=== PATIENT | male | born 1930 | race Caucasian/White ===

== ENCOUNTER 2018-01-04 22:04 | Inpatient (IN) ==
[2018-01-05] MEDS ORDERED: Naloxone 0.4 MG/ML INJ IVP PRN (01:01)
[2018-01-05 01:39] LABS: Hematocrit 26.6 % (37.5-50.1); Hemoglobin 8.2 g/dL (12.9-16.9); Immature Granulocytes % 0.3 % (0-4); Lymphocytes # 0.5 K/mcL (0.6-4.6); Lymphocytes % 12.2 %; Mean Corpuscular HGB Conc 30.8 g/dL (31.6-35.5); Mean Corpuscular Hemoglobin 22.7 pg (28.0-33.3); Mean Corpuscular Volume 73.7 fL (83.0-100.0); Mean Platelet Volume 9.2 fL (9.4-12.4); Monocytes % 0.5 %; Neutrophils # 3.2 K/mcL (1.6-8.9); Platelet Count 246 K/mcL (140-400); Red Blood Count 3.61 M/mcL (4.19-5.50); Red Cell Distribution Width 19.5 % (11.5-14.5)
[2018-01-05 01:45] LABS: INR 1.3; Prothrombin Time 14.8 Seconds (9.4-12.1)
[2018-01-05 01:51] LABS: Albumin 3.9 g/dL (3.5-5.7); Albumin/Globulin Ratio 1.2 (1.1-2.2); Bilirubin,Total 0.7 mg/dL (0.3-1.0); Calcium 8.7 mg/dL (8.6-10.3); Globulin 3.3 g/dL (2.4-3.5); Potassium 4.8 mEq/L (3.5-5.1); Total Protein 7.2 g/dL (6.4-8.9)
--- NOTE | 2018-01-05 01:54 | Internal Med History&Physical ---
<Rozina Gloria - Last Filed: 01/05/18 03:31> Date of Encounter: 01/05/18 Time of Encounter: 01:49 Internal Medicine - H&P: HPI Chief complaint: Generalized Edema Admitted From: Hospital to Hospital Transfer Plans for Post Hospital Care: Transfer Care Home Facility History of present illness: Mr. López is a 87 year old male with PMHx significant for COPD, combined diastolic and systolic CHF, CKD Stage III, anemia who had initially presented to [facility] ED with increasing edema and weakness from his [place] facility, [facility]. Notes that he has been having trouble walking and that his legs have been swelling recently. However, denies headache, vision changes, chest pain, palpitations, SOB, abdominal pain, n/v/d, fatigue. Pt remained AOx3, but with mild confusion regarding his medical problems. Pt reports he normally does not require O2 at his alf, but on arrival to ED, was found to need 2L O2 via NC to maintain O2 sat = 92-94%. On PE, evidence of 2+ pitting edema b/l to knees, and b/l wheezes in lower lung lobes. In the [facility] ED, pt was worked up for presumed CHF exacerbation. Vitals signs were essentially stable aside from O2 requirement, but pt was found to have elevated BNP, and worsening BUN/Cr. CXR showed signs of mild CHF - cardiomegaly with evidence of interstitial edema, but no pleural effusions or pneumothorax. Further workup showed elevated troponins x 2 (0.33 --> 0.31), but patient denied chest pain, palpitations, neck or arm pain, headache, dizziness, vision changes. EKG remained unchanged from previous EKGs. Pt was given 60mg IV Lasix in total, Duonebs x 2, and solumedrol 125mg in the ED. Pt was admitted to hospital service in [facility]. Initial Vitals in ED: T = 97.7; BP = 119/63; HR = 60; RR = 21; O2 = 93 on 2L O2 via NC UA: Negative CXR: Mild CHF. Cardiomegaly with evidence of interstitial pulmonary edema. No pleural effusion or pneumothorax. ABG: pH=7.36; pCO2=33; PO2=65; Bicarb = 18.6 CBC: Hb/Hct = 8.1/25.3; MCV =72.7; Otherwise within normal limits BMP: BUN/Cr = 68/2.22; Otherwise within normal limits BNP: 8760 Trops: 0.333 ---> 0.31 Upon admission to hospital floor, while on telemetry, pt was noted to have 8 beats of ventricular tachycardia, then atrial fibrillation without RVR. Due to need for cardiology and possible nephrology consultation and higher level of care, decision was made to transfer patient to [facility]. Pt currently resting comfortably in no acute distress. Stable on 2L O2 via NC. Denies chest pain, palpitations, abdominal pain, n/v/d. 2+ Pitting edema b/l lower extremities and mild b/l wheezes and lung bases on Physical Exam. Repeat Trop = 0.20. Repeat EKG: Sinus Rhythm (with questionable P-waves) with first degree AV block; Right Austin; HR = 78; Regular intervals; No acute ST Changes. Past Med Surg Social Fam HX - Past Medical History Source: old records reviewed Medical history: arthritis, cancer, CHF, COPD, CVA, GERD, myocardial infarction, other Additional medical history: CVA x 2; Hypothyroidism Psychiatric history: anxiety - Past Surgical History Surgical History: cancer surgery Additional surgical history: Tonsillectomy and Adenoidectomy - Social History Smoking Status: Former smoker Smokeless Tobacco Status: No Alcohol use: rarely (5 Drinks Weekly) Drug use: none Internal Medicine - H&P: Meds Allergy/AdvReac Type Severity Reaction Status Date / Time celecoxib [From Celebrex] Allergy Unknown See Verified 01/05/18 03:15 Comments Pneumococcal Vaccine Allergy Unknown See Verified 01/05/18 03:15 [From Pneumovax 23] Comments All Systems PM: A 10-system review of systems was performed and is negative for pertinent findings except as documented above in the HPI. - Constitutional Constitutional: no fatigue, no fever(s), no falls, no lethargy, no malaise, no weakness - EENT Eyes: no blurry vision, no change in vision Nose, mouth and throat: hoarseness, no neck pain - Cardiovascular Cardiovascular ROS IM: dyspnea, edema, no chest pain, no lightheadedness, no palpitations, no syncope - Respiratory Respiratory: dyspnea, no cough - Gastrointestinal Gastrointestinal: no abdominal pain, no diarrhea, no nausea, no vomiting - Genitourinary Genitourinary ROS male: no dysuria - Musculoskeletal Musculoskeletal ROS IM: no back pain - Integumentary Integumentary IM: rash - Neurological Neurological ROS: confusion, no dizziness, no headache(s), no weakness - Constitutional Vitals: Temp Pulse Resp BP Pulse Ox 97.7 F 76 16 127/62 94 01/05/18 00:40 01/05/18 00:40 01/05/18 00:40 01/05/18 00:40 01/05/18 00:40 General appearance: Present: A&O X 3, pleasant, no acute distress, answers questions appropriately Exam: GEN: AOx3; NAD; resting comfortably in bed; seems mildly confused, but alert and oriented to person, place, time; however, cannot explain why he's come to hospital HEENT: Atraumatic, Normocephalic; EOMI; PERRLA; mucous membranes moist CARDIO: RRR, no murmurs, rubs, gallops appreciated RESP: B/L mild wheezing appreciated at R and L Lung bases; no rhonchi, rales, crackles ABD: Soft, non-tender, non-distended, bowel-sounds present; no guarding or rebound NEURO: CN 2-12 intact; no focal deficits; 5/5 strength upper and lower extremities bilaterally EXT: 2+ pitting edema to b/l knees; evidence of cellulitis vs venous stasis dermatitis on anterior lower legs; 2+ peripheral pulses b/l Internal Med - H&P Results - Labs CBC & Chem 7: 01/05/18 01:18 01/05/18 01:18 Labs: Short CBC 01/05/18 Range/Units 01:18 WBC 3.7 L (4.3-11.1) K/mcL Hgb 8.2 L (12.9-16.9) g/dL Hct 26.6 L (37.5-50.1) % Plt Count 246 (140-400) K/mcL Neutrophils # 3.2 (1.6-8.9) K/mcL - ABG Interpretation Interpretation: ABG interpreted by me Interpretation: normal - EKG Data -: EKG Interpreted by Myself EKG shows normal: sinus rhythm (Questionable P-waves), axis (Normal Austin), intervals (Regular Intervals), QRS complexes, ST-T waves (No acute ST Changes) Rate: normal (HR = 78) - EKG Data Prior EKG available for review: yes When compared to previous EKG: there is no significant change Interpretation IM: normal EKG - Assessment and plan (1) CHF exacerbation Current Visit: Yes Status: Acute Assessment and plan: Mr. López is a 87 year old male with PMHx significant for COPD, combined diastolic and systolic CHF, CKD Stage III, anemia who had initially presented to [facility] ED with increasing edema and weakness from his [place] facility, [facility]. Associated with difficulty walking PE: Lower extremity edema 2+ b/l CXR: Mild CHF. Cardiomegaly with evidence of interstitial pulmonary edema. No pleural effusion or pneumothorax. BNP: 8760 Elevated Trops, and Elevated BUN/Cr - could be secondary to demand ischemia due to chronic disease S/p 60mg IV Lasix in the [facility] ED PLAN: Cont Lasix - 40mg IVP Monitor Vitals Strict Is and Os Daily Weights Qualifiers: Heart failure type: combined systolic and diastolic Qualified Code(s): I50.43 - Acute on chronic combined systolic (congestive) and diastolic (congestive) heart failure (2) Elevated troponin Current Visit: Yes Status: Acute Assessment and plan: Troponins found to elevated in [facility] ED: Trops: 0.333 ---> 0.31 Denies chest pain, palpitations, arm or neck pain, arm weakness, nausea Repeat Trop after transfer: 0.20 Repeat EKG: Sinus Rhythm (with questionable P-waves) with first degree AV block; Right Austin; HR = 78; Regular intervals; No acute ST Changes. PLAN: Elevated Trops likely secondary to demand ischemia Cont to monitor on telemetry Cont Baby Aspirin Cardiology recs appreciated (3) Arrhythmia Current Visit: Yes Status: Acute Assessment and plan: Upon admission to hospital floor at [facility], while on telemetry, pt was noted to have 8 beats of ventricular tachycardia, then atrial fibrillation without RVR. Due to need for cardiology and possible nephrology consultation and higher level of care, decision was made to transfer patient to [facility]. Repeat EKG at [facility]: Repeat EKG: Sinus Rhythm (with questionable P-waves) with first degree AV block; Right [place]; HR = 78; Regular intervals; No acute ST Changes. ---> concern for AFib CHADSVASC: 6 points (Age > 75, CHF, CVA hx, HTN) Starting anticoagulation was discussed with patient's son while at [facility]. Son refused due to pt's hx of CVA - did not know what type of CVA pt had in the past, and due to patient's chronic anemia PLAN: Cont to monitor on telemetry Cardiology Recommendations appreciated Qualifiers: Arrhythmia type: unspecified cardiac arrhythmia Qualified Code(s): I49.9 - Cardiac arrhythmia, unspecified (4) COPD exacerbation Current Visit: Yes Status: Acute Assessment and plan: Pt presented with lower extremity edema and weakness Found to need 2L O2 via nasal cannula for sats 92-94% PE: B/L mild wheeze lower lung draper ABG: pH=7.36; pCO2=33; PO2=65; Bicarb = 18.6 S/p Duonebs x 2 in [facility] ED, and Solumedrol 125mg PLAN: Monitor Vitals Monitor O2 Sats Wean O2 as tolerated Duonebs PRN (5) CKD (chronic kidney disease) Current Visit: Yes Status: Acute Assessment and plan: Hx of Chronic Kidney Disease Stage III BUN/Cr on admission = 67/2.06; Evidence of SYLVIE likely secondary to demand ischemia PLAN: Cont to Monitor BMP in the AM Avoid nephrotoxic medications Qualifiers: Chronic kidney disease stage: stage 3 (moderate) Qualified Code(s): N18.3 - Chronic kidney disease, stage 3 (moderate) (6) Hypothyroidism Current Visit: Yes Status: Acute Assessment and plan: Cont Home Meds Qualifiers: Hypothyroidism type: unspecified Qualified Code(s): E03.9 - Hypothyroidism, unspecified (7) Anemia Current Visit: Yes Status: Acute Assessment and plan: Hx Chronic Anemia CBC: Hb/Hct = 8.1/25.3; MCV =72.7 No signs acute blood loss PLAN: Cont home meds - 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 López is a 87 year old male All Systems PM: A 10-system review of systems was performed and is negative for pertinent findings except as documented above in the HPI. - Constitutional Vitals: Temp Pulse Resp BP Pulse Ox 97.8 F 73 17 111/67 93 01/05/18 04:45 01/05/18 04:45 01/05/18 04:45 01/05/18 04:45 01/05/18 04:45 Internal Med - H&P Results - Labs CBC & Chem 7: 01/05/18 01:18 01/05/18 01:18 Labs: Short CBC 01/05/18 Range/Units 01:18 WBC 3.7 L (4.3-11.1) K/mcL Hgb 8.2 L (12.9-16.9) g/dL Hct 26.6 L (37.5-50.1) % Plt Count 246 (140-400) K/mcL Neutrophils # 3.2 (1.6-8.9) K/mcL BMP 01/05/18 01:18 Sodium 136 Potassium 4.8 Chloride 108 H Carbon Dioxide 18 L BUN 67 H Creatinine 2.06 H Glucose 149 H Calcium 8.7 Cardiac Enzymes 01/05/18 Range/Units 01:18 Troponin I 0.20 H* (< 0.04) ng/mL Liver Function 01/05/18 Range/Units 01:18 Total Bilirubin 0.7 (0.3-1.0) mg/dL AST 25 (13-39) Units/L ALT 25 (7-52) Units/L Alkaline Phosphatase 105 H (34-104) Units/L Albumin 3.9 (3.5-5.7) g/dL - Time Spent With Patient Total time spent is greater than 50% in coordination of care (as documented) at patient's floor/unit and/or counseling patient: - Attending Attestation I performed a history and physical examination of the patient and discussed his management with the resident. I reviewed the resident's note and agree with the documented findings and plan of care.
[2018-01-05 01:55] LABS: Troponin I 0.2 ng/mL (< 0.04)
[2018-01-05] MEDS ORDERED: Ipratropium/Albuterol Neb 3 ML IH PRN (03:40)
[2018-01-05] MEDS: *HR* Heparin 5,000 UNIT/ML VIAL SQ SCH ×2 (06:01→17:48)
[2018-01-05] MEDS ORDERED: Furosemide 40 MG/4 ML VIAL IVP ONE (07:00)
[2018-01-05] MEDS: Aspirin 81 MG TAB.CHEW PO SCH (07:51)
--- NOTE | 2018-01-05 09:43 | Cardiology Consult Note ---
Addendum entered and electronically signed by Chivo Rodriguez MD 01/06/18 10:12: I examined this patient and my medical decision-making was reviewed with the Resident Physician. I agree with the documented findings, disposition and treatment plan as described except to the extent set forth below. A/P: Acute on chronic diastolic CHF 2/2 patient Lasix being held ?Questionable arrhythmia SYLVIE on CKD Continue diuresis, maintain negative fluid balance. TTE pending. Thank you for the consult, Chivo Rodriguez MD [facility] Original Note: Date of Encounter: 01/05/18 Time of Encounter: 09:41 Assessment and Plan (1) CHF exacerbation Current Visit: Yes Status: Acute 87 y/o male presents with LE edema, sob CXR showed cardiomegaly and vascular congestion patient was taken off of lasix by care home for five days proBNP >8000 last echocardiogram on showed LVEF 65% with indeterminate diastolic function hgb 8.2 takes lasix 60mg at home. plan: patient duran has CHF exacerbation from discontinuation of lasix. Unclear I/Os as patient was transferred to [place]. start lasix 60mg IV. cardiac diet. fluid restrict to 1500cc. strict I/O. repeat echocardiogram Qualifiers: Heart failure type: diastolic Qualified Code(s): I50.33 - Acute on chronic diastolic (congestive) heart failure (2) Arrhythmia Current Visit: Yes Status: Acute patient was seen to have 8 beats of vtach and then transitioned to atrial fibrillation without rvr records from [facility] (ecg, tele) do not show this telemetry since presentation at [facility] does not show any sign of vtach or atrial fibrillation. will continue to monitor for this on telemetry ECG shows patient is in sinus rhythm. Qualifiers: Arrhythmia type: unspecified cardiac arrhythmia Qualified Code(s): I49.9 - Cardiac arrhythmia, unspecified (3) Elevated troponin Current Visit: Yes Status: Acute patient had troponin elevation of ).33>0.31>0.20 ECF shows NSR with first degree av block without St elevation or depression and with RBBB likely 2nd to demand ischemia from CHF exacerbation will obtain echocardiogram. continue aspirin, atorvastatin, atenolol (4) Acute kidney injury superimposed on CKD Current Visit: Yes Status: Acute SYLVIE on CKD unknown baseline but in 2015 patients SCR was 1.05 will need to be followed closely as patient is being diuresed strict I/Os avoid nephrotoxic agents (5) COPD exacerbation Current Visit: Yes Status: Acute as per primary team Discussion w patient/family: The assessment and plan as outlined above was discussed with the patient and/or family members who expressed understanding and agreement. All questions were answered. Thank you for involving us in the care of your patient. Please call with any questions. History of Present Illness Consult date: 01/05/18 Consult reason: v-tach Chief complaint: chest pain History of present illness: Mr. López is a 87 year old male with history of CAD with DE, TIA, COPD, GERD, diastolic CHF was a transfer from the [facility] who presented with cc of generalized edema from jail in [place]. During my evaluation patient is oriented to self and place and cannot answer questions appropriately. Hx obtained from the [facility] records. Patient was started on bactrim for LE cellulitis and his lasix was held for the last five days. He was seen to have worsening LE edema to the point he was unable to ambulate and started becoming confused. Patient was taken to [facility] by EMS and EMS records show his O2 sat on room air was 85%. Patient does not use oxygen at baseline. He was admitted for acute on chronic diastolic CHF and started on IV lasix and was also given IV solu-medrol for COPD exacerbation. Patient initially required O2 but was weaned down to room air. Labs at [facility] showed a proBNP of 8760, troponin of 0.333>0.31, Scr of 2.2. After admission patient was seen to have 8 beats of V-tach of tele (this is not in records from [facility]) and then went into A-fib without rvr. Patient was transferred to [place] for further care. Past Med Surg Social Fam HX - Past Medical History Medical history: arthritis, cancer, CHF, COPD, CVA, GERD, myocardial infarction, other Additional medical history: CVA x 2; Hypothyroidism Psychiatric history: anxiety - Past Surgical History Surgical History: cancer surgery Additional surgical history: Tonsillectomy and Adenoidectomy - Social History Smoking Status: Former smoker Smokeless Tobacco Status: No Alcohol use: rarely (5 Drinks Weekly) Drug use: none Medications and Allergies Allergy/AdvReac Type Severity Reaction Status Date / Time celecoxib [From Celebrex] Allergy Unknown See Verified 01/05/18 03:15 Comments Pneumococcal Vaccine Allergy Unknown See Verified 01/05/18 03:15 [From Pneumovax 23] Comments All Systems Review: The remainder of the systems were reviewed and are negative Review of Systems: Constitutional: Denies fever, chills HEENT: Denies headache, trauma, blurry vision, eye discharge, ear pain, ear discharge neck pain, sore throat, rhinorrhea Heart: Denies chest pain palpitations,Reports LE edema Lungs: Denies shortness of breath cough Abdomen: Denies abdominal pain nausea vomiting diarrhea MSK: Denies back pain, falls, joint pain Kidney: Denies dysuria, hematuria Skin: Denies rash, ulcers Neuro: Denies numbness and tingling Psych: denies anxiety, depression Physical Examination Vital Signs, Last 4 Hours Temp Pulse Resp BP Pulse Ox 01/05/18 08:02 94 01/05/18 07:19 97.6 F 77 18 119/71 94 General: Conversant, No Apparent Distress HEENT: Atraumatic, Normocephaly, Mucus Membranes Moist Neck: No JVD, Normal carotid pulses Cardiac: Reg Rate and Rhythm, Normal S1 and S2, No Murmur Lungs: Normal Breath Sounds, No Wheeze, Rales, Rhonchi Neuro: Alert and responsive, No focal deficits noted Abdomen: Soft, Non-Tender Skin: No rashes noted on visualized skin Musculoskeletal: No Chest Wall Tenderness Extremities: No Clubbing, No Cyanosis, Normal Pulses, Other (1+ edema b/l ) Results 01/05/18 01:18 01/05/18 01:18 Lab Results 01/05/18 01/05/18 01/05/18 01:18 01:18 01:18 WBC 3.7 L Hgb 8.2 L Hct 26.6 L Plt Count 246 INR 1.3 Sodium 136 Potassium 4.8 Chloride 108 H Carbon Dioxide 18 L BUN 67 H Creatinine 2.06 H Glucose 149 H Calcium 8.7 Magnesium Total Bilirubin 0.7 AST 25 ALT 25 Alkaline Phosphatase 105 H Troponin I 0.20 H* 01/05/18 01:18 WBC Hgb Hct Plt Count INR Sodium Potassium Chloride Carbon Dioxide BUN Creatinine Glucose Calcium Magnesium 2.4 Total Bilirubin AST ALT Alkaline Phosphatase Troponin I Consult Discharge Plan - Plan Referrals: NONE,PCP [Primary Care Provider] -
--- NOTE | 2018-01-05 14:42 | Event Note ---
Date of Encounter: 01/05/18 Time of Encounter: 12:24 CHF exacerbation - elevated BNP - f/u ECHO - c/w lasix 60mg IV - Monitor tele for arrhythmia - Elevated troponin likely demand related with CHF - SYLVIE likely prerenal due to CHF. c/w diuresis
[2018-01-06 05:03] LABS: Basophils # 0.1 K/mcL (0.0-0.2); Basophils % 0.7 %; Eosinophils % 0.2 %; Hematocrit 28.9 % (37.5-50.1); Hemoglobin 8.9 g/dL (12.9-16.9); Immature Granulocytes % 0.3 % (0-4); Lymphocytes # 1.2 K/mcL (0.6-4.6); Lymphocytes % 13.5 %; Mean Corpuscular HGB Conc 30.8 g/dL (31.6-35.5); Mean Corpuscular Hemoglobin 22.8 pg (28.0-33.3); Mean Corpuscular Volume 73.9 fL (83.0-100.0); Mean Platelet Volume 9.8 fL (9.4-12.4); Monocytes # 0.8 K/mcL (0.0-1.3); Monocytes % 8.8 %; Neutrophils # 6.8 K/mcL (1.6-8.9); Nucleated Red Blood Cells 0.4 /100 WBC (0); Platelet Count 316 K/mcL (140-400); Red Blood Count 3.91 M/mcL (4.19-5.50); Red Cell Distribution Width 19.7 % (11.5-14.5); Segmented Neutrophils % 76.5 %
[2018-01-06 05:22] LABS: Calcium 8.4 mg/dL (8.6-10.3); Potassium 4.9 mEq/L (3.5-5.1)
[2018-01-06] MEDS: *HR* Heparin 5,000 UNIT/ML VIAL SQ SCH (05:55)
--- NOTE | 2018-01-06 08:11 | Cardiology Progress Note ---
Addendum entered and electronically signed by Chivo Rodriguez MD 01/06/18 13:39: I examined this patient and my medical decision-making was reviewed with the Resident Physician. I agree with the documented findings, disposition and treatment plan as described except to the extent set forth below. A/P: ACS - OR CHF exacerbation CKD 3 - stable cr since yesterday Anemia Dementia A/R/B of [facility] dw him and MPOA, pt at higher risk of complication such as bleeding and BRIGETTE/dialysis given age and comorbids; however troponin rising quickly and anterior EKG changes suspicious for obstructive LAD lesion. MPOA / pt aware and agreeable with proceeding. Original Note: Date of Encounter: 01/06/18 Time of Encounter: 09:29 Assessment and Plan (1) ACS (acute coronary syndrome) Current Visit: Yes Status: Acute Patient had episode of confusion and desaturation at overnight and now is requring increased supplemental O2. ECG showed rate 73, junctional rhythm with ST elevation in V2,V3,V4,V5 that were not present on the ECG on admission. troponin was repeated this morning and was 12.88 echo 01/05/2018 LVEF 55% with normal LV chamber size and function, moderate LV hypertrophy, moderate LV diastolic dysfunction, no wall motion abnormalaties. moderate pulmonary hypertension plan: patient will be started on heparin drip, repeat troponin at noon and contact MPOA (son) for consent for [facility]. NPO now. (2) CHF exacerbation Current Visit: Yes Status: Acute patient is diuresing successfully last 24 hour I/O is net negative 1170 LE edema improved. recommend hold lasix, fluid restrict 1500cc Qualifiers: Heart failure type: diastolic Qualified Code(s): I50.33 - Acute on chronic diastolic (congestive) heart failure (3) Acute kidney injury superimposed on CKD Current Visit: Yes Status: Acute improving likely cardiorenal etiology management as per primary (4) COPD exacerbation Current Visit: Yes Status: Acute as per primary team Discussion w patient/family: The assessment and plan as outlined above was discussed with the patient and/or family members who expressed understanding and agreement. All questions were answered. Thank you for involving us in the care of your patient. Please call with any questions. Subjective Principal diagnosis: CHF exacerbation Interval history: Overnight patient had episode of confusion and removed lines, gown, nasal cannula. On telemetry he was seen to have possible ST elevation and patient was seen to be hypoxic and started on 3L O2 now saturation is at 92 percent. Patient denied chest pain at that time. ECG showed rate 73, junctional rhythm with ST elevation in V2,V3,V4,V5 that were not present on the ECG on admission. This morning patient denies chest pain, sob, abdominal pain. Objective Vital Signs, Last 4 Hours Temp Pulse Resp BP Pulse Ox 01/06/18 07:44 92 01/06/18 06:55 97.7 F 73 17 100/62 92 01/06/18 04:16 97.4 F L 73 17 105/60 91 General: Conversant, No Apparent Distress HEENT: Atraumatic, Normocephaly, Mucus Membranes Moist Neck: No JVD, Normal carotid pulses Cardiac: Normal S1 and S2, No Murmur Lungs: Normal Breath Sounds, No Wheeze, Rales, Rhonchi Neuro: Alert and responsive, No focal deficits noted, Other (alert to self and place) Abdomen: Soft, Non-Tender Skin: No rashes noted on visualized skin Musculoskeletal: No Chest Wall Tenderness Extremities: No Clubbing, No Cyanosis, Normal Pulses, Other (1+ edema b/l ) Results 01/06/18 04:03 01/06/18 04:03 Lab Results 01/06/18 01/06/18 04:03 04:03 WBC 8.9 D Hgb 8.9 L Hct 28.9 L Plt Count 316 Sodium 136 Potassium 4.9 Chloride 106 Carbon Dioxide 18 L BUN 71 H Creatinine 1.94 H Glucose 108 H Calcium 8.4 L Consult Discharge Plan - Plan Referrals: NONE,PCP [Primary Care Provider] -
[2018-01-06] MEDS: Aspirin 81 MG TAB.CHEW PO SCH (08:34)
[2018-01-06] MEDS ORDERED: Furosemide 40 MG/4 ML VIAL IVP SCH (09:00)
--- NOTE | 2018-01-06 11:09 | Internal Med Progress Note ---
Hospitalist Progress Note - Encounter Date of Encounter: 01/06/18 Time of Encounter: 10:21 - Subjective Interval History: Patient seen and examined this morning. Had bowel movement yesterday. Denies any nausea vomiting. Denies chest pain, shortness of breath, abdominal pain. Has Lyn in place. Slightly confused than yesterday. - Exam Vitals: Temp Pulse Resp BP Pulse Ox 97.7 F 73 17 100/62 92 01/06/18 06:55 01/06/18 06:55 01/06/18 06:55 01/06/18 06:55 01/06/18 07:44 Exam: GEN: AOx2; NAD; seems mildly confused, but alert and oriented to person, place, time. CARDIO: RRR, no murmurs, rubs, gallops appreciated RESP: scattered rhonchi b/l. Crackles at bases ABD: Soft, non-tender, non-distended, bowel-sounds present; no guarding or rebound NEURO: grossly non-focal EXT: Pedal edema improving. - Summary of Assessment and Plan Summary of Assessment and Plan: Elevated troponin - Troponins initially found to elevated in [facility] ED: 0.333 ---> 0.31-->0.2 - Denies chest pain, sob. - Increased to 12.8 this morning. EKG this morning with ST elevation in V2,3,4. Disscussed with Cardiology. Repeat troponin at noon. - Will start Heparin drip. To be discussed with MPOA for catheterization based on troponin velocity - c/w tele - ECHO from yesterday with EF of 55, Mod LVH, mod diastolic dysfunction, mod TR, mod PHTN. No wall motion abnormality CHF exacerbation, Diastolic - elevated BNP - ECHO - hold lasix for now as he may need cath SYLVIE on CKD - Hx of Chronic Kidney Disease Stage III - improved with diuresis for CHF - Avoid nephrotoxic medications. However may undergo cath which may worsen renal function. COPD - c/w duonebs Anemia - Hx Chronic Anemia - No signs of acute bleeding - Monitor for now. DVT prophylaxis - Started on heparin drip - Time Spent with Patient Total time spent is greater than 50% in coordination of care (as documented) at patient's floor/unit and/or counseling patient: Internal Medicine: Result - Labs CBC & Chem 7: 01/06/18 04:03 01/06/18 04:03 Labs: Short CBC 01/06/18 Range/Units 04:03 WBC 8.9 D (4.3-11.1) K/mcL Hgb 8.9 L (12.9-16.9) g/dL Hct 28.9 L (37.5-50.1) % Plt Count 316 (140-400) K/mcL Neutrophils # 6.8 (1.6-8.9) K/mcL BMP 01/06/18 04:03 Sodium 136 Potassium 4.9 Chloride 106 Carbon Dioxide 18 L BUN 71 H Creatinine 1.94 H Glucose 108 H Calcium 8.4 L - ABG Interpretation ABG results: PT/INR, D-dimer PT 14.8 Seconds (9.4-12.1) H 01/05/18 01:18 - Impressions Impressions Echocardiogram 01/05/18 11:00 Impressions: LVEF 55%. Normal LV chamber size and function. Moderate concentric left ventricular hypertrophy. Moderate left ventricular diastolic dysfunction. Normal right ventricular size, mildly reduced function. Mild-moderate tricuspid regurgitation. Moderate pulmonary hypertension. Estimated RVSP is 41 mmHg. Left Ventricular Wall Motion: Rest Echo Findings All wall segments showed normal motion. Findings: Study Quality * Technically adequate exam. ECG Findings * Normal sinus rhythm. Left Ventricle * LVEF 55%. * Normal LV chamber size and function. * Moderate concentric left ventricular hypertrophy. * Moderate left ventricular diastolic dysfunction. Right Ventricle * Normal right ventricular size, mildly reduced function. Left Atrium * Moderately dilated left atrium. Right Atrium * Severely dilated right atrium. Aortic Valve * Aortic valve not well visualized. * Grossly, sclerotic aortic valve leaflets. * Trace aortic regurgitation. * No aortic stenosis. Mitral Valve * Mildly thickened mitral valve leaflets. * No mitral regurgitation. * No mitral stenosis. Tricuspid Valve * Normal tricuspid valve structure. * Mild-moderate tricuspid regurgitation. * Moderate pulmonary hypertension. * Estimated RVSP is 41 mmHg. * Estimated RA pressure is 5 mmHg. Pulmonic Valve * Normal pulmonic valve structure and function. * Trace pulmonic regurgitation. Aorta * Normally sized aortic root. Pericardium * The pericardium appears normal. IVC * Normal IVC dimensions and inspiratory collapse. Pulmonary Artery * Normal visualized portions of the main pulmonary artery. Consult Discharge Plan - Plan Referrals: NONE,PCP [Primary Care Provider] -
[2018-01-06] MEDS ORDERED: *HR* Heparin 5,000 UNIT/ML VIAL IVP PRN ×2 (11:16)
[2018-01-06] MEDS ORDERED: *HR* Heparin 5,000 UNIT/ML VIAL IVP ONE (11:16)
[2018-01-06] MEDS ORDERED: Heparin 25,000 UNIT/500 ML D5W 25,000 UNIT/500 ML BAG IVC SCH (11:30)
[2018-01-06 12:09] LABS: Hematocrit 29.6 % (37.5-50.1); Mean Corpuscular HGB Conc 30.4 g/dL (31.6-35.5); Mean Corpuscular Hemoglobin 22.4 pg (28.0-33.3); Mean Corpuscular Volume 73.8 fL (83.0-100.0); Platelet Count 299 K/mcL (140-400); Red Blood Count 4.01 M/mcL (4.19-5.50); Red Cell Distribution Width 19.7 % (11.5-14.5)
[2018-01-06 12:17] LABS: Heparin anti-factor XA UFH 0.05 IU/mL (0.30-0.70); INR 1.3; Prothrombin Time 14.3 Seconds (9.4-12.1)
[2018-01-06] MEDS ORDERED: 0.9 % Sodium Chloride 1,000 ML IVC SCH (13:15)
[2018-01-06] MEDS ORDERED: 0.9 % Sodium Chloride 1,000 ML ONE (13:27)
[2018-01-06] MEDS ORDERED: Heparin 1,000 UNITS/500 mL 500 ML ONE (13:27)
[2018-01-06] MEDS ORDERED: *HR* Heparin 10,000 UNIT/10 ML VIAL ONE (13:27)
[2018-01-06] MEDS ORDERED: ISOVUE-370 200 ML INFUS..BTL ONE (13:27)
[2018-01-06] MEDS ORDERED: Nitroglycerin 1,000 MCG/10 ML VIAL IV ONE (13:28)
--- NOTE | 2018-01-06 13:39 | Pre-Sedation Evaluation ---
Pre-sedation evaluation - Pre-sedation checklist Date of procedure: 01/06/18 Procedure: [facility] Recent Vitals: Last Vital Signs Temp 97.3 F L 01/06/18 11:10 Pulse 72 01/06/18 11:10 Resp 16 01/06/18 11:10 BP 98/59 01/06/18 11:10 Pulse Ox 90 01/06/18 11:10 H&P (including ROS) documented in medical record: Yes Previous reaction to sedatives/anesthetics: No Dietary Status: NPO after Midnight Airway Assessment: Patient can open mouth completely, TMJ function normal, Micrognathia (under-bite, receding chin) absent, Neck with adequate range of mot ion Dentition: No loose teeth or bridges Possible difficult airway: No ASA Classification *see protocol: CLASS II-Mild systemic disease Plan of Care: Pt appropriate candidate for procedure/moderate/conscious sedation, Risks/benefits of procedure/sedation discussed w/ patient/family Cardiac Registry (Cardio Only) - Functional Capacity Functional Capacity: < 4 METS - Clincal Frailty Scale Clinical Frailty Scale: Moderately Frail
[2018-01-06] MEDS ORDERED: *HR* Midazolam HCl 2 MG/2 ML VIAL ONE (14:31)
--- NOTE | 2018-01-06 14:38 | Electrocardiograph Report ---
[address] [address] Test Date: 2018-01-05 Pat Name: Marquis López Department: 109 Room: [facility] Gender: M Director Strategy: SUZANNE : 1930 Requested By: Sujey Lujan Order Number: [id number] Reading MD: Smith Barrera Measurements Intervals [place] Rate: 78 P: 118 WI: 213 QRS: 83 QRSD: 106 T: 19 QT: 420 QTc: 453 Interpretive Statements SINUS RHYTHM WITH FIRST DEGREE AV BLOCK INCOMPLETE RIGHT BUNDLE BRANCH BLOCK Electronically Signed On 01-06-2018 14:36:55 EST by Smith Barrera
[2018-01-06] MEDS ORDERED: *HR* FentaNYL (PF) 100 MCG/2 ML VIAL ONE (14:50)
[2018-01-06] MEDS ORDERED: *HR* Phenylephrine 10 MG/ML VIAL ONE (15:06)
[2018-01-06] MEDS ORDERED: Lidocaine/EPI 1:100k 1% 30 ML VIAL ONE (15:24)
[2018-01-06] MEDS ORDERED: *HR* Ticagrelor 90 MG TABLET ONE (15:34)
[2018-01-06] MEDS ORDERED: Nitroglycerin 0.4 MG TAB.SUBL SL PRN (15:58)
--- NOTE | 2018-01-06 16:00 | Invasive Diagnostic Lab Proc ---
Name: Marquis López Date of Study: 01/06/2018 Date: 1930 Ht: 68.1in Medical Record#: [id number] Age: 87 Wt: 154.32lb Gender: Male BSA: 1.83 Order #: [id number] BMI: 23.39 Physicians Procedure Physician: Criss Mullen MD, [facility] Referring MD: Referring MD: Staff Name Position Time In Kirby Lincoln RT (R) Scrub 02:21 PM Leonardo Keisha RT (R) Monitor 02:21 PM Ramiro Guzman RN Child Care Assistant 02:21 PM Astrid Doan RN Nurse 02:21 PM Indications Indication Non-Stemi Procedures Performed Procedure L HRT ARTERY/VENTRICLE ANGIO PRQ CARD CELESTINA STENT W/ANGIO 1 VSL Pre-Procedure Checklist Informed consent is complete signed and on chart. H&P is on chart. ID band is on and ID verified with patient. Patient NPO for procedure The procedure was described for the patient and questions were answered. ECG is on chart. Plan of Care Patient will tolerate the procedure without complications. Adequate level of comfort will be maintained. Hemodynamics will remain stable Patient will recover from procedure without complications. Respiratory function will be maintained. Cardiac rhythm will remain stable. Patient temperature will be maintained. Patient and/or family have verbalized understanding of the procedure. Patient Education Chief Complaint/Reason for Test: Cardiac Cath Developmental Category: Geriatric (65+ years) Developmentally Appropriate for Age: Yes Learning Barriers: None Education Needs: Procedure Education Method: Verbal Information Taught: Cardiac Cath Educational Evaluation: Able to repeat information Intravenous Access Time IV Size Location DC'd Fluid/Drip Rate Units RN 20g 1 02/12" Patent On Arrival 0.9NaCl ml/hr Allergies Pneumococcal Vaccine celecoxib Cephalosporin Cefixime SUPRAX Vital Signs Time BP (mmHg) HR (bpm) O2 Sat. RR (bpm) LOC 02:35 PM / % 5 = Fully awake and oriented or at pre-proc level 02:35 PM / % 4 = Oriented but drowsy 02:50 PM / % 3 = Answers simple questions/follows commands 03:05 PM / % 4 = Oriented but drowsy 02:34 PM 105 / 66 81 % 17 02:39 PM 116 / 74 73 91 % 17 02:44 PM 116 / 71 72 92 % 12 02:50 PM 108 / 65 72 92 % 10 02:54 PM 104 / 61 72 97 % 27 02:59 PM 91 / 54 72 93 % 11 03:04 PM 89 / 54 70 97 % 11 03:05 PM 91 / 54 73 97 % 11 03:09 PM 101 / 77 71 94 % 23 03:14 PM 91 / 45 71 90 % 17 03:19 PM 98 / 67 71 90 % 15 03:25 PM 109 / 69 72 88 % 27 03:20 PM / % 5 = Fully awake and oriented or at pre-proc level Procedural Medications Time Medication Dose Units Method Given By 02:32 PM Oxygen 4 L/min nasal cannula Ramiro Guzman RN 02:35 PM Versed 1 mg Intravenous Ramiro Guzman RN 02:38 PM Lidocaine 2% 17 ml Subcutaneous Criss Mullen MD, FACC 02:47 PM Oxygen 10 L/min Oxy Mask Ramiro Guzman RN 02:49 PM Oxygen 15 L/min Oxy Mask Ramiro Guzman RN 02:51 PM Fentanyl 25 mcg Intravenous Ramiro Guzman RN 02:52 PM Angiomax 0.75mg/kg bolus: 10.5 ml Intravenous Ramiro Guzman RN 02:52 PM Angiomax 1.75mg/kg/hr: 14 ml Intravenous Ramiro Guzman RN 02:59 PM Dopamine 5 mcg/kg/min Intravenous Ramiro Guzman RN 03:03 PM Dopamine 10 mcg/kg/min Intravenous Ramiro Guzman RN 03:11 PM Nitroglycerin 200 mcg Intracoronary Criss Mullen MD, FACC 03:42 PM Brilinta 180 mg Orally Ramiro Guzman RN ASA Classification: CLASS II- Mild systemic disease (i.e. well-controlled diabetes, hypertension, asthma, cigarette smoking) Elizabeth Score Preprocedure Postprocedure Activity 2- Moves 4 extremities sustained head lift Activity 2- Moves 4 extremities sustained head lift Circulation 2- SBP +/= 20 points of pre-anesthetic level Circulation 2- SBP +/= 20 points of pre-anesthetic level Consciousness 2- Awake and alert oriented x 3 Consciousness 1- Responds to verbal stimuli drowsy O2 Saturation 2- Able to maintain O2 satruation of 92% on room air O2 Saturation 1- Needs O2 inhalation to maintain O2 saturation of 90% Respiratory 2- Able to deep breathe and cough well Respiratory 2- Able to deep breathe and cough well Total Score 10 Total Score 8 Contrast Agent: Isovue Diagnostic Contrast: 106 ml Total Contrast: 106 ml Fluoro Dose: 6191 mGy Procedure Log Time Note Enter By : PM Ramiro Guzman RN Position: Child Care Assistant Time in: PM Astrid Doan RN Position: Nurse Time in: PM Kirby Lincoln RT (R) Position: Scrub Time in: PM Keisha Patterson RT (R) Position: Monitor Time in: PM Pt arrived to blood and plasma laboratory assistant 2 at : PM Physician arrived : PM Meet and greet completed Sign in performed according to hospital policy. Informed consent was obtained. PM Procedure start ::30 PM CathStat :30 PM Vitals capture started with the following parameters, Patient=Adult, Interval=5 min, Initial Vzyzfjxl=212 mmHg, Deflation Rate=5 mmHg, Cuff placed on Right Arm : PM Patient charges- Angio tray pack, Navilyst 3mm J, Pulse Oximetry and ACIST tubing and transducer : PM IV Supplies used: J loop Angio Cath. : PM Case Delayed No PM Hair removed from procedure site in holding area using clippers. Bilateral groin prepped with Chloraprep by Betty aGmez RT (R), then patient was draped. Skin intact. 33 PM Time: 14:32 Oxygen on at 4 L/min per nasal cannula by Ramiro Guzman RN :34 PM Vitals capture started with the following parameters, Patient=Adult, Interval=5 min, Initial Zuvopuvw=451 mmHg, Deflation Rate=5 mmHg, Cuff placed on Right Arm :34 PM Pressure channel 1 zeroed. :34 PM HR=81 bpm, KXGO=717/66 mmhg, Resp=17 B/min, Comment=Sinus 02:34 PM Time: 14:34 Patient comfortable and pain free: Yes 35 PM Time: 14:35LOC: 5 = Fully awake and oriented or at pre-proc level dsp 02:35 PM Clinical Presentation: Non-STEMI dsp 02:35 PM Time: 14:35 Versed 1 mg Intravenous Given by Ramiro Guzman RN 02:37 PM Time out was performed according to hospital policy. Conscious sedation and anesthesia was achieved (see medication log with in this report above) :39 PM Time: 14:38 17 ml Lidocaine 2% to right groin Subcutaneous Given by Criss Mullen MD, [facility] dsp 02:39 PM Access obtained by percutaneous puncture. 5Fr 10cm Terumo [place] sheath placed in right Femoral artery. [id number] dspell 02:39 PM 5Fr FL 4 catheter inserted over the wire [facility] 02:39 PM HR=73 bpm, OSDL=107/74 mmhg, SpO2=91.0 %, Resp=17 B/min 02:39 PM 0.035 145cm Navilyst 3mmJ wire [id number] dsp 02:40 PM LCA angiography performed in multiple views. 02:40 PM Recorded Pressure: Ao, HR=75, Condition=Condition 1 (Aorta) Ao 100/61/79 02:42 PM Catheter removed dspell 02:42 PM 5Fr FR 4 catheter inserted over the wire [facility] dsp 02:43 PM RCA angiography performed in multiple views. dspell 02:43 PM Recorded Pressure: Ao, HR=73, Condition=Condition 1 (Aorta) Ao 85/65/76 02:43 PM Catheter removed dspell 02:44 PM HR=72 bpm, VVUI=240/71 mmhg, SpO2=92.0 %, Resp=12 B/min, Comment=Sinus 02:46 PM Lesion found in Proximal LAD. Pre Stenosis: 100 Pre JOHNY Flow: 0: No Flow/No perfusion dspell 02:46 PM PCI Status Urgent dspell 02:46 PM PCI lesion in Mid LAD. dspell 02:46 PM Sheath exchanged for a 6 Fr 11 cm Cordis [place] sheath [id number] dspell 02:47 PM Inflation device was opened. :47 PM Time: 14:47 Oxygen on at 10 L/min per Oxy Mask by Ramiro Guzman RN 02:48 PM O2 Sat 82% on Forehead dspell 02:49 PM Time: 14:49 Oxygen on at 15 L/min per Oxy Mask by Ramiro Guzman RN opal :50 PM Time: 14:34 Patient comfortable and pain free: Yes :50 PM Time: 14:35LOC: 4 = Oriented but drowsy dsp 02:50 PM HR=72 bpm, QHFT=459/65 mmhg, SpO2=92 %, Resp=10 B/min, Comment=Sinus 02:51 PM Time: 14:51 Fentanyl 25 mcg Intravenous [facility] PM O2 Sat 93% on Finger dsp 02:52 PM 6Fr XB LAD 3.5 Cordis guide catheter was used to cannulate the PCI vessel successfully. reused? No [facility]:52 PM Time: 14:52 Angiomax 0.75mg/kg bolus: 10.5 ml Intravenous Given by Ramiro Guzman RN Lal pump [facility] 02:52 PM Time: 14:52 Angiomax 1.75mg/kg/hr: 14 ml Intravenous Given by Ramiro Guzman RN Lal pump 02:53 PM .014 Prowater 190cm guide wire across target lesion- successful. reused? No :53 PM Recorded Pressure: Ao, HR=73, Condition=Condition 1 (Aorta) Ao 93/49/66 02:54 PM HR=72 bpm, KKIF=208/61 mmhg, SpO2=97.0 %, Resp=27 B/min, Comment=Sinus 02:56 PM 2.5 mm x 15 mm Emerge Monorail balloon across target lesion- successful. reused? No :57 PM Balloon inflated @ 8 tyson for 20 seconds dsp:57 PM Recorded Pressure: Ao, HR=72, Condition=Condition 1 (Aorta) Ao 68/33/49 02:58 PM Balloon inflated @ 6 tyson for 15 seconds 02:59 PM Balloon inflated @ 6 tyson for 15 seconds dspell 02:59 PM Balloon inflated @ 6 tyson for 15 seconds dspell 02:59 PM HR=72 bpm, NIBP=91/54 mmhg, SpO2=93.0 %, Resp=11 B/min, Comment=Sinus 03:00 PM Time: 14:59 Dopamine 5 mcg/kg/min Intravenous Given by Ramiro Guzman RN Lal pump dspellman 03:00 PM Recorded Pressure: Ao, HR=71, Condition=Condition 1 (Aorta) Ao 63/34/47 03:02 PM Pressure channel 1 zeroed. 03:03 PM Balloon catheter removed intact. dspell 03:03 PM Time: 15:03 Dopamine 10 mcg/kg/min Intravenous Given by Ramiro Guzman RN Lal pump dspell 03:04 PM 2.25mm x 38mm Synergy drug-eluting stent across target lesion- successful Lot #[id number] dspellman 03:04 PM HR=70 bpm, NIBP=89/54 mmhg, SpO2=97.0 %, Resp=11 B/min, Comment=Sinus 03:04 PM NIBP STAT measurement started. 03:05 PM Stent deployed @ 12 tyson for 30 seconds dspell 03:05 PM Time: 14:50LOC: 3 = Answers simple questions/follows commands dspellman 03:05 PM Time: 14:50 Patient comfortable and pain free: Yes dspellman 03:05 PM HR=73 bpm, NIBP=91/54 mmhg, SpO2=97.0 %, Resp=11 B/min, Comment=Sinus 03:06 PM Stent delivery system removed intact. dspell 03:06 PM Recorded Pressure: Ao, HR=71, Condition=Condition 1 (Aorta) Ao 79/44/59 03:07 PM 2.5mm x 32mm Synergy drug-eluting stent across target lesion- successful Lot #[id number] dspellman 03:09 PM HR=71 bpm, JGYA=586/77 mmhg, SpO2=94.0 %, Resp=23 B/min, Comment=Sinus 03:09 PM Stent deployed @ 12 tyson for 30 seconds dspell 03:10 PM Stent balloon reinflated @ 18 tyson for 15 seconds dspellman 03:11 PM Recorded Pressure: Ao, HR=71, Condition=Condition 1 (Aorta) Ao 80/44/59 03:11 PM Time: 15:11 Nitroglycerin 200 mcg Intracoronary Given by Criss Mullen MD, [facility] dspell 03:12 PM Guide wire removed intact. dspellman 03:12 PM Stent delivery system removed intact. dspellman 03:14 PM HR=71 bpm, NIBP=91/45 mmhg, SpO2=90.0 %, Resp=17 B/min, Comment=Sinus 03:15 PM Procedure completed at 15:15 01/06/2018 dspellman 03:16 PM Did you address JOHNY flow and Dominance? Yes dspellman 03:[address] Rodriguez to do Perclose per Dr Mullen's request dspellman 03:17 PM Isovue 370 - 200ml,1 Bottle(s) used. dspellman 03:18 PM Post ECG NSR dspellman 03:18 PM Post Blood Pressure 91/45 dspellman 03:18 PM Learning barriers :Cognitive dspellman 03:19 PM Arterial sheath pulled, Perclose closure device used and was Successful S/N. dspellman 03:19 PM HR=71 bpm, NIBP=98/67 mmhg, SpO2=90.0 %, Resp=15 B/min, Comment=Sinus 03:20 PM Time: 15:05 Patient comfortable and pain free: Yes dspellman 03:20 PM Time: 15:05LOC: 4 = Oriented but drowsy dspellman 03:24 PM Sign out completed: Radiation Dose 548.43 mGy, 6191.31 cGy/cm2 Fluoro Time: 7.0 Isovue 370 - 200ml contrast 106 ml given by Criss Mullen MD, [facility]. Complications: None. The patient was discharged out of the laborer in stable condition. Cardiac Rehab Consult needed: YesConfirmed administered medications: Yes dspellman 03:25 PM Estimated Blood Loss: minimal dspellman 03:25 PM HR=72 bpm, BDKF=064/69 mmhg, SpO2=88.0 %, Resp=27 B/min, Comment=Sinus 03:25 PM Site status No bleeding/hematoma - Rt Groin as reported by Kirby Lincoln RT (R) at 15:25 dspellman 03:25 PM Opsite applied dspellman 03:29 PM Vitals capture stopped. 03:34 PM Report given to Jenna MORGAN Pt taken to ICU Room #7. 15:33 dspellman 03:37 PM Time: 15:20LOC: 5 = Fully awake and oriented or at pre-proc level dspellman 03:37 PM Time: 15:20 Patient comfortable and pain free: Yes dspellman 03:37 PM Patient out of room: 15:37 dspellman 03:38 PM Family placed in consult room. dspellman 03:38 PM Complications: None dspell 03:43 PM Time: 15:42 Brilinta 180 mg Orally Given by Ramiro Guzman RN dspellman 03:44 PM Lesion found in Proximal LAD. Pre Stenosis: 50 Pre JOHNY Flow: 3: Complete and Brisk Flow/Perfusion dspellman 03:44 PM Lesion found in Mid Circumflex. Pre Stenosis: 90 Pre JOHNY Flow: 3: Complete and Brisk Flow/Perfusion dspellman 03:44 PM Information taught Cardiac Cath, PCI, and Perclose dspellman 03:44 PM Education needs Procedure, Plan of Care, and Responsibilities of Patient in Care dspellman 03:45 PM Education Methods Verbal dspell 03:45 PM Education evaluation Able to repeat information dspellman 03:49 PM Coronary Dominance: right dspnazridgeland Complications Complication None None Hemodynamics Pressures Site Systolic/A Wave Diastolic/V Wave Mean AO 100 61 79 AO 85 65 76 AO 93 49 66 AO 68 33 49 AO 63 34 47 AO 79 44 59 AO 80 44 59 Post Procedure Information Blood Pressure: 91/45 mmHg Rhythm: NSR Post procedural instructions were given Closure Device Time Device Success/Fail 01/06/2018 3:39:00 PM Perclose ProGlide Successful Site Checks Time Location Status Staff Sheath In? Note 03:25 PM Rt Groin No bleeding/hematoma Kirby Lincoln RT (R) Pulses Time Site Pre-Procedure Post-Procedure Note Bilateral DP & PT 1+ Bilateral radial 2+ Updated by Keisha Patterson RT (R) on 01/06/2018 3:50:33 PM Keisha Patterson RT electronically signed on 01/06/2018 3:51:42 PM with status of Final
[2018-01-06 16:14] VITALS: BP 91/35
[2018-01-06 16:41] LABS: ABG Base Excess -9 mEq/L (-2 to 3); ABG HCO3 17 mEq/L (21-27); ABG Oxygen Saturation 81 % (95-98); ABG PCO2 36 mmHg (35-45); ABG PH 7.28 pH Units (7.32-7.45); ABG PO2 50 mmHg (85-104); ABG TCO2 18 mEq/L (20-26)
--- NOTE | 2018-01-06 18:44 | Event Note ---
Date of Encounter: 01/06/18 Time of Encounter: 18:26 JR TAM was called at around 5:40 PM. By the time I arrived chest compression were stopped based on patient's son's(POA) request were present just outside patient's ICU bed. On arrival rhythm strip was not available. Patient likely had bradycardia without palpable pulse when the CPR was started. While speaking with the son patient was noted to have gasping breathing movements as well as live study manager showing regular rhythm. Patient did have heart sounds on auscultation and was having gasping breathing with systolic blood pressure in 60s with map in 40s. Patient's family did not want aggressive measures and no further CPR or life-support measures were initiated. Patient's family wanted patient to be comfortable and made him comfort care and DNR CCA. Patient's rhythm quickly deteriorated to bradycardia and later to asystole. Patient was noted without pulse, respiration or response to painful or verbal stimuli. Pupils were fixed and dilated and absent corneal reflex. Patient was subsequently pronounced at 6:34 PM. Intervention cardiology was informed of the event. Family at bedside during the entire time.
[2018-01-07] MEDS ORDERED: Metoprolol XL (24 HR) Succ 25 MG TAB.ER.24H PO SCH (09:00)
--- NOTE | 2018-01-07 09:05 | Electrocardiograph Report ---
[address] [place], [place] [address] Test Date: 2018-01-06 Pat Name: Marquis López Department: 109 Room: [facility] Gender: M Head Waiter/Waitress: [id number] : 1930 Requested By: Mike Marie Order Number: [id number] Reading MD: Hardik Brooks Measurements Intervals [place] Rate: 73 P: [place]: 0 QRS: 75 QRSD: 94 T: 6 QT: 423 QTc: 449 Interpretive Statements SINUS RHYTHM LOW QRS VOLTAGE IN PRECORDIAL LEADS PROBABLE ANTERIOR MYOCARDIAL INFARCTION, OF INDETERMINATE AGE POSSIBLE INFERIOR MYOCARDIAL INFARCTION, PROBABLY OLD Electronically Signed On 01-07-2018 9:04:13 EST by Hardik Brooks
== END 2018-01-06 21:15 | disposition expired | DRG 246 ==
LOC: 2ANU → SUATTDRO 01-05 01:01 → ICNU 01-06 15:51
PROVIDERS: ADMIT Internal Medicine; ATTEND Internal Medicine